=== PATIENT | male | born 1940 | race African-American/Black ===

== ENCOUNTER 2018-07-15 19:37 | Emergency (ER) | payer OTHER ==
[2018-07-15 19:50] VITALS: BMI 27.4
--- NOTE | 2018-07-15 20:18 | PDOC ---
History of Present Illness - General Chief Complaint: Shortness of Breath Stated Complaint: SOB/FEVER Time Seen by Provider: 07/15/18 20:17 - History of Present Illness Initial Comments: 07/15/18 20:18 Mr. Chacon is a 77 yo male w/ pmh of HTN, HLD, osteoporosis, who presents for evaluation of 1 day history of cough with fever. Patient reports he has been coughing since yesterday evening and had a fever at home of 100.6. Patient took OTC coricidin for symptomatic relief w/ little effect. Presents as family is concerned about influenza. The patient denies chest pain, shortness of breath, headache and dizziness. Denies chills, nausea, vomit, diarrhea and constipation. Denies dysuria, frequency, urgency and hematuria. Past History - Past Medical History Allergies/Adverse Reactions: Allergies Allergy/AdvReac Type Severity Reaction Status Date / Time No Known Allergies Allergy Verified 07/15/18 19:48 Home Medications: Ambulatory Orders Cholecalciferol (Vitamin D3) [Vitamin D] 1,000 unit PO DAILY 12/25/12 Atenolol [Tenormin -] 25 mg PO DAILY 12/26/12 Losartan Potassium 25 mg PO DAILY 12/26/12 Rosuvastatin Calcium [Crestor] 20 mg PO DAILY #30 tablet 12/27/12 COPD: No HTN: Yes Hypercholesterolemia: Yes - Surgical History Orthopedic Surgery: Yes (R. Knee, L. Thumb) - Suicide/Smoking/Psychosocial Hx Smoking Status: No Smoking History: Never smoked Have you smoked in the past 12 months: No Number of Cigarettes Smoked Daily: 0 Hx Alcohol Use: No Drug/Substance Use Hx: No Substance Use Type: None Hx Substance Use Treatment: No Review of Systems - Review of Systems Comments:: 07/15/18 20:41 GENERAL/CONSTITUTIONAL: +Fever as described. No chills. No weakness. HEAD, EYES, EARS, NOSE AND THROAT: No change in vision. No ear pain or discharge. No sore throat. CARDIOVASCULAR: No chest pain or shortness of breath RESPIRATORY: +24 hours of dry cough. No wheezing or hemoptysis. GASTROINTESTINAL: No nausea, vomiting, diarrhea or constipation. GENITOURINARY: No dysuria, frequency, or change in urination. MUSCULOSKELETAL: No joint or muscle swelling or pain. No neck or back pain. SKIN: No rash NEUROLOGIC: No headache, vertigo, loss of consciousness, or change in strength/ sensation. ENDOCRINE: No increased thirst. No abnormal weight change HEMATOLOGIC/LYMPHATIC: No anemia, easy bleeding, or history of blood clots. ALLERGIC/IMMUNOLOGIC: No hives or skin allergy. *Physical Exam - Vital Signs Last Vital Signs Temp Pulse Resp BP Pulse Ox 99.8 F H 111 H 24 H 134/73 98 07/15/18 19:48 07/15/18 19:48 07/15/18 19:48 07/15/18 19:48 07/15/18 19:48 - Physical Exam Comments: 07/15/18 20:42 GENERAL: Awake, alert, and fully oriented, in no acute distress HEAD: No signs of trauma, normocephalic, atraumatic EYES: PERRLA, EOMI, sclera anicteric, conjunctiva clear ENT: +Nares and oropharynx inflamed. Auricles normal inspection, hearing grossly normal, nares patent, oropharynx clear without exudates. Moist mucosa NECK: Normal ROM, supple, no lymphadenopathy, JVD, or masses LUNGS: No distress, speaks full sentences, clear to auscultation bilaterally HEART: Regular rate and rhythm, normal S1 and S2, no murmurs, rubs or gallops, peripheral pulses normal and equal bilaterally. ABDOMEN: Soft, nontender, normoactive bowel sounds. No guarding, no rebound. No masses EXTREMITIES: Normal inspection, Normal range of motion, no edema. No clubbing or cyanosis. NEUROLOGICAL: Cranial nerves II through XII grossly intact. Normal speech, normal gait, no focal sensorimotor deficits SKIN: Warm, Dry, normal turgor, no rashes or lesions noted. ED Treatment Course - LABORATORY CBC & Chemistry Diagram: 07/15/18 21:35 07/15/18 21:35 Medical Decision Making - Medical Decision Making 07/15/18 22:49 Mr. Chacon is a 77 yo male w/ pmh as described who presents for evaluation of symptoms concerning for electrolyte abnormality vs. flu vs. pneumonia vs. other viral illness. Patient evaluated with labs as below for further investigation as well as CXR. Patient given motrin and tylenol for fever control and symptomatic relief. Patient pulse improved to 88. CXR negative. Labs grossly wnl. No concern for acute process at this time. Discharging to home. Laboratory Results - last 24 hr 07/15/18 07/15/18 07/15/18 21:25 21:35 21:35 WBC 7.4 RBC 4.76 Hgb 15.1 Hct 43.8 MCV 91.9 MCH 31.6 MCHC 34.4 RDW 14.0 Plt Count 137 MPV 9.2 Absolute Neuts (auto) 6.0 Neutrophils % 80.6 D Lymphocytes % 4.2 L D Monocytes % 14.0 H Eosinophils % 0.9 Basophils % 0.3 Nucleated RBC % 0 Sodium 141 Potassium 4.6 Chloride 110 H Carbon Dioxide 23 Anion Gap 8 BUN 23 H Creatinine 2.2 H Creat Clearance w eGFR 29.09 Random Glucose 125 H Calcium 8.6 Total Bilirubin 0.4 AST 15 ALT 22 Alkaline Phosphatase 63 Total Protein 6.8 Albumin 3.4 Influenza A (Rapid) Negative Influenza B (Rapid) Negative *DC/Admit/Observation/Transfer Diagnosis at time of Disposition: Cough Fever Qualifiers: Fever type: unspecified Qualified Code(s): R50.9 - Fever, unspecified Upper respiratory infection Qualifiers: URI type: unspecified URI Qualified Code(s): J06.9 - Acute upper respiratory infection, unspecified - Discharge Dispostion Disposition: HOME - Referrals Referrals: Renetta Schultz MD [Primary Care Provider] - - Patient Instructions Printed Discharge Instructions: DI for Viral Upper Respiratory Infection -- Adult Additional Instructions: You were evaluated today in the ER for your cough and fever. We performed laboratory evaluation as well as chest xray with no concerning findings. You can take over the counter motrin or tylenol as well as mucinex or other over the counter viral medications per package instructions for relief. Please follow -up with primary care provider later this week for further evaluation. Return to ER if any change in cough, difficulty breathing, or other concerning symptoms. - Post Discharge Activity
[2018-07-15] MEDS ORDERED: ACETAMINOPHEN 500 MG TABLET (FP) PO ONE (20:28)
[2018-07-15] MEDS ORDERED: ACETAMINOPHEN 325 MG TABLET (FP) ONE (21:15)
[2018-07-15 21:40] LABS: BASO % 0.3 % (0-2.0); EOS % 0.9 % (0-4.5); HEMATOCRIT 43.8 % (35.4-49); HEMOGLOBIN 15.1 GM/dL (11.7-16.9); LYMPH % 4.2 % (8-40); MCH 31.6 pg (25.7-33.7); MCHC 34.4 g/dl (32.0-35.9); MEAN CELL VOLUME 91.9 fl (80-96); MEAN PLT VOLUME 9.2 fl (7.5-11.1); NEUT % 80.6 % (42.8-82.8); PLATELET COUNT 137 K/MM3 (134-434); RBC 4.76 M/mm3 (4.00-5.60); WHITE BLOOD COUNT 7.4 K/mm3 (4.0-10.0)
[2018-07-15 22:10] LABS: ALBUMIN 3.4 g/dl (3.4-5.0); ALK PHOS 63 U/L (45-117); ANION GAP 8 MMOL/L (8-16); BILIRUBIN,TOTAL 0.4 mg/dL (0.2-1); BLOOD UREA NITROGEN 23 mg/dL (7-18); CALCIUM 8.6 mg/dL (8.5-10.1); CHLORIDE 110 mmol/L (98-107); CO2 23 mmol/L (21-32); CREATININE 2.2 mg/dL (0.55-1.3); GLUCOSE,RANDOM 125 mg/dL (74-106); POTASSIUM 4.6 mmol/L (3.5-5.1); SGOT/AST 15 U/L (15-37); SGPT/ALT 22 U/L (13-61); SODIUM 141 mmol/L (136-145); TOT PROT 6.8 g/dl (6.4-8.2)
[2018-07-15] MEDS ORDERED: IBUPROFEN 600 MG TABLET (FP) PO ONE ×2 (22:31→22:37)
[2018-07-15 22:35] VITALS: BP 122/59; PULSE 93; TEMP 100.9
--- NOTE | 2018-07-16 02:09 | PDOC ---
Documentation entered by Harshal Mtz SCRIBE, acting as scribe for Nancy Molina MD. Nancy Molina MD: This documentation has been prepared by the Bibi barnett Nirvannie, SCRIBE, under my direction and personally reviewed by me in its entirety. I confirm that the documentation accurately reflects all work, treatment, procedures, and medical decision making performed by me. Attending Attestation - Resident Resident Name: Ponce Mckeon - ED Attending Attestation I have performed the following: I have examined & evaluated the patient, The case was reviewed & discussed with the resident, I agree w/resident's findings & plan - HPI HPI: 07/15/18 20:42 The patient is a 77 year old male, with a significant past medical history of HTN, HLD, osteoporosis, who presents to the emergency department with, 1 day of nonproductive cough and a fever (Tmax 100.6F). He denies any recent dysuria, frequency, urgency or hematuria. Allergies: NKDA Primary Care Physician: Dr. Schultz - Physicial Exam PE: 07/15/18 22:52 GENERAL: Well-appearing, well-nourished. No apparent distress. HEENT: Normocephalic, atraumatic. PERRL, EOM intact. CARDIOVASCULAR: Normal S1, S2. Regular rate and rhythm. PULMONARY: Clear to auscultation bilaterally. ABDOMEN: Soft, non-distended, non-tender. EXTREMITIES: Normal ROM in all four extremities. No gross deformities. SKIN: Warm, dry. No rash NEUROLOGICAL: No focal neurological deficits. - Medical Decision Making 07/15/18 22:58 cxr no infiltrates cbc is unremarkable chemistries chronic renal insufficiency creatinine is usually about 2 lungs are cta b/l pt has no resp distress, he is not tachypnic, he is not hypoxic imp cough,fever, URI plan d/c home
--- NOTE | 2018-07-17 12:40 | EKG ---
Test Reason : Blood Pressure : / mmHG Vent. Rate : 104 BPM Atrial Rate : 104 BPM P-R Int : 156 ms QRS Dur : 078 ms QT Int : 316 ms P-R-T Axes : 071 066 074 degrees QTc Int : 415 ms SINUS TACHYCARDIA OTHERWISE NORMAL ECG Confirmed by MD ANTELMO, MICHI ([id number]) on 07/17/2018 12:40:10 PM Referred By: Confirmed By:MICHI RODRIGES MD
== END 2018-07-15 23:14 | disposition home or self-care (01) ==
LOC: JER 19:37
DX: J06.9 Acute upper respiratory infection, unspecified (principal); I12.9 Hypertensive chronic kidney disease with stage 1 through stage 4 chronic kidney disease, or unspecified chronic kidney disease; N18.9 Chronic kidney disease, unspecified; E78.5 Hyperlipidemia, unspecified; M81.8 Other osteoporosis without current pathological fracture
CPT/HCPCS: 36415; 71046-TC-FY; 80053; 85025; 87804; 93005; 93010; 99281-25

== ENCOUNTER 2020-01-06 08:39 | Emergency (ER) | payer OTHER ==
[2020-01-06 08:44] VITALS: BP 140/80; PULSE 88; TEMP 98.5; BMI 27.4
--- OUTSIDE RECORDS SUMMARY | 2020-01-06 09:00 | XMS ---
:1940 Author Organization [facility] Support Name Relationship Address Phone MARIA TERESA ARIAS DAUGHTER [address] [place] [address] RE Unavailable Unavailable Unavailable SCHU[facility]ER [facility]OTA [address] [place] [address] Re-disclosure Warning The records that you are about to access may contain information from federally- assisted alcohol or drug abuse programs. If such information is present, then the following federally mandated warning applies: This information has been disclosed to you from records protected by federal confidentiality rules (42 CFR part 2). The federal rules prohibit you from making any further disclosure of this information unless further disclosure is expressly permitted by the written consent of the person to whom it pertains or as otherwise permitted by 42 CFR part 2. A general authorization for the release of medical or other information is NOT sufficient for this purpose. The Federal rules restrict any use of the information to criminally investigate or prosecute any alcohol or drug abuse patient.The records that you are about to access may contain highly sensitive health information, the redisclosure of which is protected by Article 27-F of the [facility] Public Health law. If you continue you may haveaccess to information: Regarding HIV / AIDS; Provided by facilities licensed or operated by the [facility] Office of Mental Health; or Provided by the [facility] Office for People With Developmental Disabilities. If such information is present, then the following [facility] mandated warning applies: This information has been disclosed to you from confidential records which are protected by state law. State law prohibits you from making any further disclosure of this information without the specific written consent of the person to whom it pertains, or as otherwise permitted by law. Any unauthorized further disclosure in violation of state law may result in a fine or nursing home sentence or both. A general authorization for the release of medical or other information is NOT sufficient authorization for further disclosure. Insurance Providers Payer name Policy type Policy ID Covered Covered alliance party's Policy P deidre / Coverage alliance party ID relationship to [employer] Inf ormation type rosas HIP LICENSED PROSTHETIST/ORTHOTIST [id number] SP [id number] HIP MEDICARE [id number] SP [id number] VIP 1 HEALTH SJR 2012 SP SJR 2013 [id number] SOLUTIONS [id number]
--- NOTE | 2020-01-06 09:41 | PDOC ---
History of Present Illness - General Chief Complaint: Pain Stated Complaint: ANKLE PAIN Time Seen by Provider: 01/06/20 09:22 History Source: Patient Exam Limitations: No Limitations - History of Present Illness Travel History: No Initial Comments: 01/06/20 09:41 79-year-old male presents to ED with complaints of left ankle pain upon awakening yesterday morning. Patient denies any injury but states history of arthritis and states has been applying a heating pad to the affected area with minimal effect. Patient denies radiation of pain, swelling to area, decreased sensation to the toes, or rash to area. Timing/Duration: reports: constant Quality: reports: moderate, aching Pain Radiation: reports: no radiation Activities at Onset: reports: none Aggravating Factors: improves with: Movement Alleviating Factors: improves with: Rest Past History - Travel History Traveled outside of the country in the last 30 days: No Close contact w/someone who was outside of country & ill: No - Medical History Allergies/Adverse Reactions: Allergies Allergy/AdvReac Type Severity Reaction Status Date / Time No Known Allergies Allergy Verified 01/06/20 08:41 Home Medications: Ambulatory Orders Cholecalciferol (Vitamin D3) [Vitamin D] 1,000 unit PO DAILY 12/25/12 Atenolol [Tenormin -] 25 mg PO DAILY 12/26/12 Losartan Potassium 25 mg PO DAILY 12/26/12 Rosuvastatin Calcium [Crestor] 20 mg PO DAILY #30 tablet 12/27/12 COPD: No HTN: Yes Hypercholesterolemia: Yes - Surgical History Orthopedic Surgery: Yes (R. Knee, L. Thumb) - Psycho-Social/Smoking History Patient Lives Alone: No Lives with/in: daughter Smoking Status: No Smoking History: Never smoked Have you smoked in the past 12 months: No Number of Cigarettes Smoked Daily: 0 - Substance Abuse Hx (Audit-C & DAST Scrn) How often the patient has a drink containing alcohol: Never Score: In Men: 4 or > Positive; In Women: 3 or > Positive: 0 Screen Result (Pos requires Nsg. Audit-10AR): Negative Review of Systems - Review of Systems Able to Perform ROS?: Yes Constitutional: No: Symptoms Reported : No: Symptoms Reported Musculoskeletal: Yes: Joint Pain Integumentary: No: Symptoms Reported Neurological: No: Symptoms reported *Physical Exam - Vital Signs Last Vital Signs Temp Pulse Resp BP Pulse Ox 98.5 F 88 18 140/80 99 01/06/20 08:41 01/06/20 08:41 01/06/20 08:41 01/06/20 08:41 01/06/20 08:41 - Physical Exam General Appearance: Yes: Nourished, Appropriately Dressed. No: Apparent Distress HEENT: negative: Pale Conjunctivae Respiratory/Chest: negative: Respiratory Distress Cardiovascular: positive: Regular Rhythm, Regular Rate. negative: Murmur Extremity: positive: Normal Inspection, Normal Range of Motion, Tender (Medial aspect of left malleolus.) Integumentary: positive: Normal Color, Warm, Moist Neurologic: positive: Motor Strength 5/5 (ambulatory. FROM of left ankle ) ED Treatment Course - RADIOLOGY Radiology Studies Ordered: Category Date Time Status ANKLE-LEFT [RAD] Stat Radiology 01/06/20 09:22 Ordered Medical Decision Making - Medical Decision Making 01/06/20 10:09 Chief complaint: Patient here with complaints of left ankle pain upon awakening yesterday morning. Patient with history of arthritis. No meds taken. Exam: Patient with tenderness to the medial aspect of left malleolus. No redness no swelling no increased temperature. Plan: X-ray ordered of the ankle. 01/06/20 10:16 X-ray shows no acute pathology. Patient ordered for Adam wrap and Motrin. Will discharge home with the same. Discharge - Discharge Information Problems reviewed: Yes Clinical Impression/Diagnosis: Left ankle pain Condition: Good Disposition: HOME - Follow up/Referral Referrals: Renetta Schultz MD [Primary Care Provider] - - Patient Discharge Instructions Patient Printed Discharge Instructions: DI for Ankle Pain Additional Instructions: Please continue to elevate the extremity when not walking. Take Motrin 40 mg every 8 hours. Use the Adam wrap during the day but remove it at night. - Post Discharge Activity
[2020-01-06] MEDS ORDERED: IBUPROFEN 400 MG TABLET (FP) PO ONE ×2 (10:16→10:18)
== END 2020-01-06 10:31 | disposition home or self-care (01) ==
LOC: JER 08:39 → JERFT 08:39
DX: M25.572 Pain in left ankle and joints of left foot (principal)
CPT/HCPCS: 73610-TC-LT-FY; 99283-25